=== PATIENT | male | born 1990 | race Caucasian/White ===

== ENCOUNTER 2021-09-27 23:47 | Emergency (ER) | payer SELFPAY ==
[~2021-09-27] VITALS: Ht 167.6 cm; Wt 102.5 kg
[2021-09-27 23:58] VITALS: BP 140/78
--- NOTE | 2021-09-28 02:00 | NUR ---
PATIENT CALL TO BED , NO RESPONSE. PATIENT LEFT WITHOUT BEING SEEN BY DR. BRAVO. NO FURTHER CARE PROVIDED FOR PATIENT.
--- NOTE | 2021-09-28 02:10 | NUR ---
CALLED FOR THE SECOND TIME, NO RESPONSE
--- NOTE | 2021-09-28 02:20 | NUR ---
CALLED FOR THE THIRD TIME , NO RESPONSE
== END 2021-09-28 02:00 | disposition left against medical advice (07) ==
LOC: MED 23:47
DX: Z53.21 Procedure and treatment not carried out due to patient leaving prior to being seen by health care provider (principal)